=== PATIENT | male | born 1960 | race Caucasian/White ===

== ENCOUNTER 2019-11-14 11:11 | Inpatient (IN) | payer MEDICAID, OTHER ==
[~2019-11-14] VITALS: Ht 180.3 cm; Wt 91.6 kg
[2019-11-14 13:25] LABS: BASOPHILS % 0.1 % (0.0-2.0); EOSINOPHILS % 5.2 % (0.0-5.0); HEMATOCRIT. 35.4 % (42.0-52.0); HEMOGLOBIN. 11.3 g/dL (14.0-18.0); LYMPHOCYTES % 12.7 % (20.0-50.0); MEAN CORPUSCULAR HEMOGLOBIN 23.8 pg (28.0-32.0); MEAN CORPUSCULAR VOLUME 74.7 fL (80.0-94.0); MEAN PLATELET VOLUME 7.7 fl (7.4-10.4); MONOCYTES % 5.8 % (2.0-8.0); NEUTROPHILS % 76.2 % (40.0-76.0); PLATELET 228 x1000/uL (130-400); RED BLOOD CELL COUNT 4.74 mill/uL (4.7-6.1); RED CELL DISTRIBUTION WIDTH 16.4 % (11.6-14.6)
[2019-11-14 13:35] LABS: CHLORIDE 107 mEq/L (98-107)
[2019-11-14] MEDS ORDERED: ASPIRIN 325MG TABLET PO ONE (13:45)
[2019-11-14] MEDS ORDERED: SODIUM CHLORIDE 0.9% 1,000 ML IV ONE (14:14)
[2019-11-14] MEDS ORDERED: KETOROLAC 15MG/ML VIAL IV PRN (14:30)
[2019-11-14] MEDS ORDERED: CLONIDINE 0.1MG TABLET PO PRN (14:30)
[2019-11-14] MEDS ORDERED: DOCUSATE SODIUM 100MG CAPSULE PO PRN (14:30)
[2019-11-14] MEDS ORDERED: IPRATROPIUM/ALBUTEROL 0.5-3(2.5)MG/3ML NEB NEB PRN (14:30)
[2019-11-14] MEDS ORDERED: ONDANSETRON HCL 4MG/2ML INJ IV PRN (14:30)
[2019-11-14] MEDS ORDERED: GUAIFENESIN 200MG/10ML SUGAR FREE UDC PO PRN (14:30)
[2019-11-14] MEDS ORDERED: ACETAMINOPHEN 325MG TABLET PO PRN ×2 (14:30)
[2019-11-14] MEDS ORDERED: MAGNESIUM/ALUMINUM HYDROXIDE/SIMETHICONE 30ML UDC PO PRN (14:30)
[2019-11-14] MEDS ORDERED: ENOXAPARIN 40MG/0.4ML SYR SUBCUT SCH (15:00)
[2019-11-14 15:01] LABS: ETHANOL BLOOD < 10 mg/dL
[2019-11-14 15:03] LABS: LDL CHOLESTEROL 112 mg/dL (5-100); TOTAL IRON BINDING CAPACITY 467 ug/dL (250-450)
[2019-11-14 15:05] LABS: HDL CHOLESTEROL 30 mg/dL (40-59)
[2019-11-14 15:12] LABS: FOLIC ACID (FOLATE) SERUM 11.1 ng/mL (>5.38)
[2019-11-14 17:15] VITALS: BP 128/80
[2019-11-14 17:38] VITALS: BP 128/80
[2019-11-14 20:00] VITALS: BP 127/77
[2019-11-14] MEDS: FAMOTIDINE 20MG TABLET PO SCH (20:39)
[2019-11-14] MEDS: ASCORBIC ACID 500 MG TABLET PO SCH (20:39)
[2019-11-14] MEDS ORDERED: ZOLPIDEM TARTRATE 5MG TABLET PO PRN (21:00)
[2019-11-14] MEDS ORDERED: PNEUMOCOCCAL 23-VAL P-SAC VAC 0.5 ML IM ONE (21:00)
[2019-11-14] MEDS: NITROGLYCERIN 0.4MG TABLET SL SL PRN (22:49)
[2019-11-15 00:45] LABS: CREATINE KINASE 288 IU/L (39-308)
[2019-11-15 00:46] LABS: CREATINE KINASE MB FRACTION 3.4 ng/mL (0.5-3.6)
[2019-11-15] MEDS: NITROGLYCERIN 0.4MG TABLET SL SL PRN (03:22)
[2019-11-15 07:57] LABS: CREATINE KINASE 245 IU/L (39-308)
[2019-11-15 07:58] LABS: CREATINE KINASE MB FRACTION 2.2 ng/mL (0.5-3.6)
[2019-11-15] MEDS ORDERED: ASPIRIN 325MG EC TABLET PO SCH (09:00)
[2019-11-15] MEDS ORDERED: ZINC SULFATE 220 MG ( 50 ) CAPSULE PO SCH (09:00)
[2019-11-15] MEDS: FAMOTIDINE 20MG TABLET PO SCH (09:15)
[2019-11-15] MEDS: ASCORBIC ACID 500 MG TABLET PO SCH (09:15)
[2019-11-15 12:00] VITALS: BP 126/72
== END 2019-11-15 12:57 | disposition home or self-care (01) | DRG 203 ==
LOC: ER 11:11 → EDBEDREQTM 13:47 → 6WST 14:14 → EDBEDREQTM 14:16 → EDBEDREQ 14:16 → ENRESERV 15:28
PROVIDERS: ADMIT Internal Medicine; ATTEND Internal Medicine
DX: M94.0 Chondrocostal junction syndrome [Tietze] (principal); D50.9 Iron deficiency anemia, unspecified; E86.0 Dehydration; J98.11 Atelectasis
CPT/HCPCS: 36415; 71045; 80053; 80061; 80320; 82550; 82553; 82607; 82746; 83036; 83540; 83550; 83880; 84484; 85025; 93005; 93970; 99285; J1650; J7030; G0480